=== PATIENT | male | born 1985 | race Caucasian/White ===

== ENCOUNTER 2016-12-04 08:42 | Emergency (ER) | payer MEDICARE ==
[~2016-12-04] VITALS: Ht 172.7 cm; Wt 62.7 kg
[~2016-12-04 08:42] MED LIST: BACL-19 PO; CITA20TA5 PO; CITA20TA9 PO; DIAZ5TAB4 PO; FEXO60TA9 PO; GENT3.5O3 EACHEYE; LORA10TA62 PO; MAGN400T26 PO; METH10TA4 PO; MULT-326 PO
[2016-12-04] MEDS ORDERED: DIPH,PERTUSS(ACELL),TET VAC/PF 0.5 ML IM-VACC ONE ×2 (09:29→09:30)
[2016-12-04] MEDS ORDERED: LIDOCAINE 1%, 20ML ONE (09:29)
[2016-12-04] MEDS ORDERED: LIDOCAINE 2%, 10ML INFIL ONE (09:30)
[2016-12-04 10:07] VITALS: BP 136/88
== END 2016-12-04 10:54 | disposition home or self-care (01) ==
LOC: ED 10:01
DX: S91.112A Laceration without foreign body of left great toe without damage to nail, initial encounter (principal); X58.XXXA Exposure to other specified factors, initial encounter; Y93.89 Activity, other specified; Y99.8 Other external cause status; Y92.009 Unspecified place in unspecified non-institutional (private) residence as the place of occurrence of the external cause
CPT/HCPCS: 12002; 73630; 90471; 90715; 99284; J3490

== ENCOUNTER 2016-12-11 22:54 | Emergency (ER) | payer MEDICARE ==
[~2016-12-11] VITALS: Ht 167.6 cm; Wt 60.0 kg
[2016-12-11 23:35] VITALS: BP 165/95
== END 2016-12-12 00:54 | disposition home or self-care (01) ==
LOC: ED 23:44
DX: F10.20 Alcohol dependence, uncomplicated (principal); H10.33 Unspecified acute conjunctivitis, bilateral
CPT/HCPCS: 99283

== ENCOUNTER 2016-12-13 02:04 | Emergency (ER) | payer MEDICARE ==
[~2016-12-13] VITALS: Ht 177.8 cm; Wt 65.0 kg
[2016-12-13] MEDS ORDERED: SODIUM CHLORIDE 0.9% 1,000 ML IV ONE ×2 (02:18→03:47)
[2016-12-13] MEDS ORDERED: HALOPERIDOL 5 MG/ML IM ONE (02:30)
[2016-12-13] MEDS ORDERED: SODIUM CHLORIDE 0.9% 1,000ML IVBOLUS ONE ×2 (02:30→04:00)
[2016-12-13] MEDS ORDERED: LORazepam 2 MG/ML, 1ML IVPush PRN (02:30)
[2016-12-13] MEDS ORDERED: ONDANSETRON 2MG/ML, 2ML IVPush ONE (02:30)
[2016-12-13] MEDS ORDERED: SODIUM CHLORIDE FLUSH 10ML SYR IVF ONE (02:30)
[2016-12-13] MEDS ORDERED: ONDANSETRON 2MG/ML, 2ML ONE (02:34)
[2016-12-13] MEDS ORDERED: LORazepam 2 MG/ML, 1ML ONE (02:34)
[2016-12-13 02:36] LABS: HEMOGLOBIN 15.2 g/dL (13.7-18.0)
[2016-12-13 02:49] LABS: BLOOD UREA NITROGEN 12 mg/dL (7-18)
[2016-12-13 02:53] LABS: ACETAMINOPHEN < 2 mcg/mL (10-30)
[2016-12-13] MEDS ORDERED: HALOPERIDOL 5 MG/ML ONE (03:45)
[2016-12-13 06:06] VITALS: BP 106/56
== END 2016-12-13 07:33 | disposition left against medical advice (07) ==
LOC: ED 03:04
DX: F10.220 Alcohol dependence with intoxication, uncomplicated (principal); F32.9 Major depressive disorder, single episode, unspecified
CPT/HCPCS: 36415; 80048; 80307; 80329; 82040; 85025; 93005; 96361; 96372; 96374; 96375; 99285; J1630; J2060; J2405; J7030; G0480

== ENCOUNTER 2016-12-14 19:13 | Inpatient (IN) | payer MEDICARE ==
[~2016-12-14] VITALS: Ht 172.7 cm; Wt 49.0 kg
[2016-12-14] MEDS ORDERED: SODIUM CHLORIDE 0.9% 1,000 ML IV ONE (19:33)
[2016-12-14] MEDS ORDERED: LORazepam 2 MG/ML, 1ML ONE ×2 (19:41→23:15)
[2016-12-14] MEDS ORDERED: THIAMINE 100 MG/ML, 2ML ONE (19:42)
[2016-12-14] MEDS: LORazepam 2 MG/ML, 1ML IVPush PRN ×2 (19:50→23:29)
[2016-12-14] MEDS ORDERED: THIAMINE 100 MG/ML, 2ML IM ONE (20:00)
[2016-12-14] MEDS ORDERED: SODIUM CHLORIDE FLUSH 10ML SYR IVF ONE (20:00)
[2016-12-14] MEDS ORDERED: SODIUM CHLORIDE 0.9% 1,000ML IVBOLUS ONE (20:00)
[2016-12-14 20:04] LABS: BLOOD UREA NITROGEN 5 mg/dL (7-18)
[2016-12-14 20:07] LABS: ASPARTATE AMINO TRANSFERASE 272 U/L (15-37)
[2016-12-14] MEDS ORDERED: CIPROFLOXACIN OPHTH SOLN 0.3%, 5ML EACHEYE SCH (22:30)
[2016-12-14] MEDS ORDERED: LORazepam 0.5MG TABLET PO PRN (23:00)
[2016-12-14] MEDS ORDERED: DOCUSATE 100 MG CAPSULE PO PRN (23:00)
[2016-12-14] MEDS ORDERED: LABETALOL 5MG/ML, 20ML IV PRN (23:00)
[2016-12-14] MEDS ORDERED: PROMETHAZINE 25 MG/ML, 1ML IM PRN (23:00)
[2016-12-14] MEDS ORDERED: LORazepam 2 MG/ML, 1ML IV PRN ×3 (23:00)
[2016-12-14] MEDS ORDERED: LORazepam 1MG TABLET PO PRN (23:00)
[2016-12-14] MEDS ORDERED: ENOXAPARIN 40 MG/0.4 ML SQ SCH (23:00)
[2016-12-14] MEDS ORDERED: POLYETHYLENE GLYCOL 17 GM PACKET PO PRN (23:00)
[2016-12-14] MEDS ORDERED: BISACODYL 10 MG SUPP PR PRN (23:00)
[2016-12-14] MEDS ORDERED: NS + 20MEQ KCL 1,000 ML IV ONE (23:20)
[2016-12-14] MEDS: NS + 20MEQ KCL 1,000 ML IV SCH (23:28)
[2016-12-14] MEDS: [UNRECOGNIZED DRUG - OTHER] IV SCH (23:34)
[2016-12-14] MEDS: MAGNESIUM SULFATE IV SCH (23:34)
[2016-12-14] MEDS: FOLIC ACID IV SCH (23:34)
[2016-12-14] MEDS: MVI ADULT IV SCH (23:34)
[2016-12-14] MEDS: POTASSIUM CHLORIDE IV SCH (23:34)
[2016-12-15] MEDS: BACLOFEN 10 MG TABLET PO SCH ×3 (00:19→21:07)
[2016-12-15 00:44] VITALS: BP 139/88
[2016-12-15] MEDS: LORazepam 2 MG/ML, 1ML IV PRN ×3 (01:33→17:25)
[2016-12-15] MEDS: ONDANSETRON 2MG/ML, 2ML IVP PRN (01:33)
[2016-12-15 02:00] VITALS: BP 143/82
[2016-12-15] MEDS: LORazepam 1MG TABLET PO PRN ×2 (05:09→22:39)
[2016-12-15 05:53] LABS: ASPARTATE AMINO TRANSFERASE 211 U/L (15-37); BLOOD UREA NITROGEN 4 mg/dL (7-18)
[2016-12-15 08:29] VITALS: BP 139/93
[2016-12-15] MEDS: CIPROFLOXACIN OPHTH SOLN 0.3%, 5ML EACHEYE SCH ×4 (10:33→21:08)
[2016-12-15] MEDS: NS + 20MEQ KCL 1,000 ML IV SCH ×3 (11:31→21:50)
[2016-12-15 15:16] VITALS: BP 145/97
[2016-12-15 20:00] VITALS: BP 150/102
[2016-12-15] MEDS: MAGNESIUM SULFATE IV SCH (23:25)
[2016-12-15] MEDS: MVI ADULT IV SCH (23:25)
[2016-12-15] MEDS: [UNRECOGNIZED DRUG - OTHER] IV SCH (23:25)
[2016-12-15] MEDS: POTASSIUM CHLORIDE IV SCH (23:25)
[2016-12-15] MEDS: FOLIC ACID IV SCH (23:25)
[2016-12-16 02:00] VITALS: BP 142/101
[2016-12-16 05:19] LABS: BLOOD UREA NITROGEN 5 mg/dL (7-18)
[2016-12-16 05:23] LABS: ASPARTATE AMINO TRANSFERASE 180 U/L (15-37)
[2016-12-16] MEDS: NS + 20MEQ KCL 1,000 ML IV SCH ×2 (06:02→11:10)
[2016-12-16] MEDS: CIPROFLOXACIN OPHTH SOLN 0.3%, 5ML EACHEYE SCH ×4 (06:02→20:25)
[2016-12-16 08:18] VITALS: BP 143/98
[2016-12-16] MEDS: BACLOFEN 10 MG TABLET PO SCH ×2 (09:08→20:25)
[2016-12-16] MEDS: ONDANSETRON 2MG/ML, 2ML IVP PRN (10:26)
[2016-12-16 14:02] VITALS: BP 160/92
[2016-12-16] MEDS: LORazepam 2 MG/ML, 1ML IV PRN (14:09)
[2016-12-16] MEDS: LORazepam 1MG TABLET PO PRN ×3 (16:34→23:45)
[2016-12-16 19:08] VITALS: BP 129/91
[2016-12-17] MEDS ORDERED: TRAZODONE 150MG TABLET PO SCH (00:30)
[2016-12-17 01:48] VITALS: BP 134/89
[2016-12-17] MEDS: CIPROFLOXACIN OPHTH SOLN 0.3%, 5ML EACHEYE SCH ×2 (06:56→14:58)
[2016-12-17 08:23] VITALS: BP 134/73
[2016-12-17] MEDS ORDERED: FOLIC ACID 1 MG TABLET PO SCH (09:00)
[2016-12-17] MEDS ORDERED: THIAMINE 100MG TABLET PO SCH (09:00)
[2016-12-17] MEDS ORDERED: MULTIVITAMIN 1 TABLET PO SCH (09:00)
[2016-12-17] MEDS: BACLOFEN 10 MG TABLET PO SCH (09:49)
[2016-12-17] MEDS: LORazepam 1MG TABLET PO PRN ×2 (09:50→14:57)
[2016-12-17 14:00] VITALS: BP 134/73
[2016-12-17] MEDS ORDERED: FOLI-17 PO (14:19)
[2016-12-17] MEDS ORDERED: THIA100T10 PO (14:19)
[2016-12-17] MEDS ORDERED: CIPR2.5D EACHEYE (14:19)
[2016-12-17] MEDS ORDERED: MULT1TAB60 PO (14:19)
== END 2016-12-17 18:00 | disposition home or self-care (01) | DRG 895 ==
LOC: ED 21:14 → EDIP 22:23 → 5SO 12-15 00:24 → 4NOR 12-16 17:54
PROC: HZ34ZZZ Individual Counseling for Substance Abuse Treatment, Interpersonal (ICD-10-PCS; principal; 2016-12-14)
PROC: HZ2ZZZZ Detoxification Services for Substance Abuse Treatment (ICD-10-PCS; 2016-12-14)
DX: F10.239 Alcohol dependence with withdrawal, unspecified (principal); E87.1 Hypo-osmolality and hyponatremia; K70.10 Alcoholic hepatitis without ascites; F90.9 Attention-deficit hyperactivity disorder, unspecified type; F32.9 Major depressive disorder, single episode, unspecified; H10.9 Unspecified conjunctivitis; D72.829 Elevated white blood cell count, unspecified; D69.59 Other secondary thrombocytopenia; E87.6 Hypokalemia; R74.0 Nonspecific elevation of levels of transaminase and lactic acid dehydrogenase [LDH]; F41.0 Panic disorder [episodic paroxysmal anxiety]; Z71.41 Alcohol abuse counseling and surveillance of alcoholic
CPT/HCPCS: 36415; 80048; 80053; 80307; 80329; 82040; 82140; 83735; 84100; 85025; 87324; 93005; 96361; 96372; 96374; 96375; J2405; J2550; J3411; J3475; J3480; G0480; J1630; J2060; J3420; J7030

== ENCOUNTER 2016-12-23 02:04 | Emergency (ER) | payer MEDICARE ==
[~2016-12-23] VITALS: Ht 172.7 cm; Wt 67.3 kg
[~2016-12-23 02:04] MED LIST changes: +CIPR2.5D EACHEYE; +FOLI-17 PO; +MULT1TAB60 PO; +THIA100T10 PO
[2016-12-23] MEDS ORDERED: LORazepam 1MG TABLET ONE (02:56)
[2016-12-23] MEDS ORDERED: LORazepam 1MG TABLET PO ONE (03:00)
[2016-12-23 03:01] VITALS: BP 156/107
== END 2016-12-23 03:23 | disposition home or self-care (01) ==
LOC: ED 02:45
DX: F10.229 Alcohol dependence with intoxication, unspecified (principal); F41.1 Generalized anxiety disorder; F17.210 Nicotine dependence, cigarettes, uncomplicated
CPT/HCPCS: 99282

== ENCOUNTER 2016-12-29 20:30 | Emergency (ER) | payer MEDICARE ==
[~2016-12-29] VITALS: Ht 172.7 cm; Wt 72.0 kg
[2016-12-29 20:32] VITALS: BP 134/99
[2016-12-29 21:00] LABS: BLOOD UREA NITROGEN 6 mg/dL (7-18)
== END 2016-12-29 21:24 | disposition home or self-care (01) ==
LOC: ED 21:00
DX: F10.229 Alcohol dependence with intoxication, unspecified (principal); F15.10 Other stimulant abuse, uncomplicated
CPT/HCPCS: 36415; 80048; 80307; 82040; 99284

== ENCOUNTER 2017-01-03 05:37 | Emergency (ER) | payer MEDICARE ==
[~2017-01-03] VITALS: Ht 172.7 cm; Wt 64.5 kg
[2017-01-03] MEDS ORDERED: LORazepam 1MG TABLET ONE (05:57)
[2017-01-03] MEDS ORDERED: THIAMINE 100MG TABLET ONE (05:57)
[2017-01-03] MEDS ORDERED: LORazepam 1MG TABLET PO ONE (06:00)
[2017-01-03] MEDS ORDERED: THIAMINE 100MG TABLET PO ONE (06:00)
[2017-01-03 06:17] VITALS: BP 146/98
== END 2017-01-03 08:10 | disposition home or self-care (01) ==
LOC: ED 06:14
DX: F10.20 Alcohol dependence, uncomplicated (principal); F17.210 Nicotine dependence, cigarettes, uncomplicated; F90.9 Attention-deficit hyperactivity disorder, unspecified type; F41.1 Generalized anxiety disorder; Y90.9 Presence of alcohol in blood, level not specified
CPT/HCPCS: 99283

== ENCOUNTER 2017-01-11 12:38 | Emergency (ER) | payer MEDICARE ==
[~2017-01-11] VITALS: Ht 172.7 cm; Wt 63.5 kg
[2017-01-11] MEDS ORDERED: LORazepam 1MG TABLET ONE (13:19)
[2017-01-11] MEDS ORDERED: LORazepam 1MG TABLET PO ONE (13:30)
[2017-01-11 14:13] VITALS: BP 139/98
== END 2017-01-11 16:42 | disposition left against medical advice (07) ==
LOC: ED 16:36
DX: R07.89 Other chest pain (principal); F10.120 Alcohol abuse with intoxication, uncomplicated; F17.210 Nicotine dependence, cigarettes, uncomplicated
CPT/HCPCS: 36415; 71020; 84484; 93005; 99285

== ENCOUNTER 2017-01-18 01:18 | Emergency (ER) | payer MEDICARE, MEDICAID ==
[~2017-01-18] VITALS: Ht 172.7 cm; Wt 64.7 kg
[2017-01-18] MEDS ORDERED: THIAMINE 100MG TABLET ONE (01:39)
[2017-01-18] MEDS ORDERED: ONDANSETRON 2MG/ML, 2ML ONE (01:39)
[2017-01-18] MEDS ORDERED: LORazepam 2 MG/ML, 1ML ONE (01:40)
[2017-01-18] MEDS ORDERED: LORazepam 2 MG/ML, 1ML IVPush ONE (02:00)
[2017-01-18] MEDS ORDERED: THIAMINE 100MG TABLET PO ONE (02:00)
[2017-01-18] MEDS ORDERED: SODIUM CHLORIDE 0.9% 1,000ML IVBOLUS ONE (02:00)
[2017-01-18] MEDS ORDERED: SODIUM CHLORIDE FLUSH 10ML SYR IVF ONE (02:00)
[2017-01-18] MEDS ORDERED: FOLIC ACID 1 MG TABLET PO ONE (02:00)
[2017-01-18] MEDS ORDERED: ONDANSETRON 2MG/ML, 2ML IVPush ONE (02:00)
[2017-01-18 02:21] LABS: BLOOD UREA NITROGEN 9 mg/dL (7-18)
[2017-01-18 03:17] LABS: DAU SCREEN DISCLAIMER
[2017-01-18 03:47] VITALS: BP 153/93
== END 2017-01-18 03:49 | disposition home or self-care (01) ==
LOC: ED 01:58
DX: R07.89 Other chest pain (principal); F41.1 Generalized anxiety disorder; R00.0 Tachycardia, unspecified; F32.9 Major depressive disorder, single episode, unspecified
CPT/HCPCS: 36415; 71010; 80048; 80307; 82040; 85025; 93005; 96361; 96374; 96375; 99285; J2060; J2405; J7030

== ENCOUNTER 2017-02-28 17:04 | Emergency (ER) | payer MEDICARE, MEDICAID ==
[~2017-02-28] VITALS: Ht 172.7 cm; Wt 59.0 kg
[2017-02-28 17:36] VITALS: BP 126/95
== END 2017-02-28 18:25 | disposition home or self-care (01) ==
LOC: ED 17:41
DX: F10.220 Alcohol dependence with intoxication, uncomplicated (principal)
CPT/HCPCS: 99283

== ENCOUNTER 2017-03-02 17:56 | Emergency (ER) | payer MEDICARE, MEDICAID ==
[~2017-03-02] VITALS: Ht 172.7 cm; Wt 65.4 kg
[2017-03-02] MEDS ORDERED: ERYTHROMYCIN OPHTH 0.5%, 1GM OP ONE (19:00)
[2017-03-02 19:42] VITALS: BP 139/86
== END 2017-03-02 19:45 | disposition home or self-care (01) ==
LOC: ED 19:20
DX: H10.023 Other mucopurulent conjunctivitis, bilateral (principal); F15.10 Other stimulant abuse, uncomplicated
CPT/HCPCS: 99283

== ENCOUNTER 2017-03-05 07:27 | Emergency (ER) | payer MEDICARE, MEDICAID ==
[~2017-03-05] VITALS: Ht 172.7 cm; Wt 66.0 kg
[2017-03-05] MEDS ORDERED: ONDANSETRON 2MG/ML, 2ML IVPush ONE (08:00)
[2017-03-05] MEDS ORDERED: THIAMINE 100MG TABLET PO ONE (08:00)
[2017-03-05] MEDS ORDERED: LORazepam 2 MG/ML, 1ML IVPush ONE (08:00)
[2017-03-05] MEDS ORDERED: SODIUM CHLORIDE 0.9% 1,000ML IVBOLUS ONE (08:00)
[2017-03-05] MEDS ORDERED: ONDANSETRON 2MG/ML, 2ML ONE (08:11)
[2017-03-05] MEDS ORDERED: LORazepam 2 MG/ML, 1ML ONE (08:11)
[2017-03-05] MEDS ORDERED: THIAMINE 100MG TABLET ONE (08:11)
[2017-03-05 09:05] VITALS: BP 138/90
== END 2017-03-05 09:44 | disposition home or self-care (01) ==
LOC: ED 09:07
DX: F10.232 Alcohol dependence with withdrawal with perceptual disturbance (principal); F19.10 Other psychoactive substance abuse, uncomplicated; F90.9 Attention-deficit hyperactivity disorder, unspecified type
CPT/HCPCS: 96361; 96374; 96375; 99284; J2060; J2405; J7030

== ENCOUNTER 2017-04-13 04:25 | Emergency (ER) | payer MEDICARE, MEDICAID ==
[~2017-04-13] VITALS: Ht 172.7 cm; Wt 68.2 kg
[2017-04-13 04:26] VITALS: BP 138/91
== END 2017-04-13 05:03 | disposition home or self-care (01) ==
LOC: ED 04:43
DX: H10.021 Other mucopurulent conjunctivitis, right eye (principal)
CPT/HCPCS: 99283

== ENCOUNTER 2017-04-21 21:43 | Emergency (ER) | payer MEDICARE, MEDICAID ==
[~2017-04-21] VITALS: Ht 170.2 cm; Wt 65.7 kg
[2017-04-21] MEDS ORDERED: SODIUM CHLORIDE 0.9% 1,000 ML IV ONE (21:46)
[2017-04-21] MEDS ORDERED: LORazepam 2 MG/ML, 1ML IVPush ONE (22:00)
[2017-04-21] MEDS ORDERED: SODIUM CHLORIDE 0.9% 1,000ML IVBOLUS ONE (22:00)
[2017-04-21] MEDS ORDERED: ONDANSETRON 2MG/ML, 2ML IVPush ONE (22:00)
[2017-04-21 22:17] LABS: HEMATOCRIT 42.6 % (39.2-51.8); HEMOGLOBIN 14.3 g/dL (13.7-18.0); WHITE BLOOD COUNT 6.1 x10^3/uL (3.4-10)
[2017-04-21 22:30] LABS: DAU SCREEN DISCLAIMER
[2017-04-21 22:31] LABS: ASPARTATE AMINO TRANSFERASE 27 U/L (15-37); BLOOD UREA NITROGEN 5 mg/dL (7-18)
[2017-04-21 22:32] LABS: ACETAMINOPHEN < 2 mcg/mL (10-30)
[2017-04-21] MEDS ORDERED: CHLO25CA9 PO (23:03)
[2017-04-21] MEDS ORDERED: AMPH20TA2 PO (23:03)
[2017-04-22 02:53] VITALS: BP 115/68
== END 2017-04-22 02:56 | disposition home or self-care (01) ==
LOC: ED 23:05
DX: G92 Toxic encephalopathy (principal); G31.2 Degeneration of nervous system due to alcohol; T42.4X1A Poisoning by benzodiazepines, accidental (unintentional), initial encounter; F10.20 Alcohol dependence, uncomplicated; Z72.89 Other problems related to lifestyle; Y92.9 Unspecified place or not applicable
CPT/HCPCS: 36415; 80053; 80307; 80329; 85025; 93005; 99291; G0480

== ENCOUNTER 2017-04-24 12:54 | Emergency (ER) | payer MEDICARE, MEDICAID ==
[~2017-04-24] VITALS: Ht 172.7 cm; Wt 68.0 kg
[~2017-04-24 12:54] MED LIST changes: +AMPH20TA2 PO; +CHLO25CA9 PO
[2017-04-24] MEDS ORDERED: ZIPRASIDONE 20 MG INJ IM ONE ×2 (13:00→13:10)
[2017-04-24] MEDS ORDERED: SODIUM CHLORIDE 0.9% 1,000ML IVBOLUS ONE (13:00)
[2017-04-24] MEDS ORDERED: PLEASE ENTER HEIGHT AND WEIGHT MC SCH (13:30)
[2017-04-24 16:15] VITALS: BP 110/72
== END 2017-04-24 17:39 | disposition home or self-care (01) ==
LOC: ED 14:38
DX: F10.120 Alcohol abuse with intoxication, uncomplicated (principal)
CPT/HCPCS: 96360; 96361; 96372; 99285; J3486; J7030

== ENCOUNTER 2017-09-29 20:44 | Emergency (ER) | payer MEDICARE, MEDICAID ==
[~2017-09-29] VITALS: Ht 167.6 cm; Wt 70.0 kg
[2017-09-29 21:02] VITALS: BP 127/93
== END 2017-09-29 21:54 | disposition left against medical advice (07) ==
LOC: ED 21:48
DX: F10.20 Alcohol dependence, uncomplicated (principal); F41.1 Generalized anxiety disorder; F32.9 Major depressive disorder, single episode, unspecified; G62.9 Polyneuropathy, unspecified
CPT/HCPCS: 99283

== ENCOUNTER 2017-10-03 04:22 | Emergency (ER) | payer MEDICARE, MEDICAID ==
[~2017-10-03] VITALS: Ht 172.7 cm; Wt 72.5 kg
[2017-10-03] MEDS ORDERED: LORazepam 1MG TABLET ONE (05:09)
[2017-10-03] MEDS ORDERED: LORazepam 1MG TABLET PO ONE (05:30)
[2017-10-03] MEDS ORDERED: POLYTRIM OPHTH 10ML LEFTEYE ONE (05:30)
[2017-10-03 05:51] VITALS: BP 150/96
== END 2017-10-03 06:28 | disposition home or self-care (01) ==
LOC: ED 05:12
DX: H10.022 Other mucopurulent conjunctivitis, left eye (principal); R00.0 Tachycardia, unspecified; F10.220 Alcohol dependence with intoxication, uncomplicated; F41.1 Generalized anxiety disorder; F17.210 Nicotine dependence, cigarettes, uncomplicated; F32.9 Major depressive disorder, single episode, unspecified; G62.9 Polyneuropathy, unspecified; Z59.0 Homelessness
CPT/HCPCS: 82962; 99283

== ENCOUNTER 2018-04-22 16:09 | Emergency (ER) | payer MEDICAID, MEDICARE ==
[~2018-04-22] VITALS: Ht 175.3 cm; Wt 72.0 kg
[~2018-04-22 16:09] MED LIST changes: -CITA20TA5 PO; +CITA20TA6 PO
[2018-04-22 16:14] VITALS: BP 138/95
== END 2018-04-22 17:45 | disposition home or self-care (01) ==
LOC: ED 17:05
DX: F10.120 Alcohol abuse with intoxication, uncomplicated (principal); F17.200 Nicotine dependence, unspecified, uncomplicated; Z79.899 Other long term (current) drug therapy
CPT/HCPCS: 36415; 80307; 99283

== ENCOUNTER 2018-04-25 18:43 | Emergency (ER) | payer MEDICARE ==
[~2018-04-25] VITALS: Ht 172.7 cm; Wt 73.0 kg
== END 2018-04-25 19:17 ==
LOC: ED 19:10
DX: F10.220 Alcohol dependence with intoxication, uncomplicated (principal); F90.9 Attention-deficit hyperactivity disorder, unspecified type; F17.200 Nicotine dependence, unspecified, uncomplicated
CPT/HCPCS: 99283

== ENCOUNTER 2018-06-30 12:38 | Emergency (ER) | payer MEDICARE, MEDICAID ==
[~2018-06-30] VITALS: Ht 172.7 cm; Wt 68.0 kg
[2018-06-30] MEDS ORDERED: MAALOX/HYOSCYAMINE/LIDOCAINE 45 ML BTL PO ONE (13:30)
[2018-06-30] MEDS ORDERED: MAALOX/HYOSCYAMINE/LIDOCAINE 45 ML BTL ONE (13:43)
[2018-06-30 15:21] VITALS: BP 128/64
== END 2018-06-30 15:23 | disposition home or self-care (01) ==
LOC: ED 13:00
DX: F10.220 Alcohol dependence with intoxication, uncomplicated (principal); R10.13 Epigastric pain; H10.023 Other mucopurulent conjunctivitis, bilateral; F41.1 Generalized anxiety disorder; F32.9 Major depressive disorder, single episode, unspecified
CPT/HCPCS: 99283

== ENCOUNTER 2018-06-30 19:28 | Emergency (ER) | payer MEDICARE, MEDICAID ==
[~2018-06-30] VITALS: Ht 170.2 cm; Wt 70.0 kg
[2018-06-30] MEDS ORDERED: LORazepam 1MG TABLET PO ONE (21:00)
[2018-06-30] MEDS ORDERED: ONDANSETRON ODT 4 MG PO ONE (21:00)
[2018-06-30] MEDS ORDERED: LORazepam 1MG TABLET ONE (21:17)
[2018-06-30] MEDS ORDERED: ONDANSETRON ODT 4 MG ONE (21:17)
[2018-06-30 21:24] LABS: BASOPHILS # (AUTO) 0.05 x10^3/uL (0-0.1); BASOPHILS % (AUTO) 1 % (0-1); EOSINOPHILS # (AUTO) 0.02 x10^3/uL (0-0.4); EOSINOPHILS % (AUTO) 0 % (1-7); LYMPHOCYTES # (AUTO) 2.72 x10^3/uL (1-3.4); LYMPHOCYTES % (AUTO) 33 % (22-44); MD NO; MEAN CORPUSCULAR HEMOGLOBIN 30.1 pg (27.5-34.5); MEAN CORPUSCULAR HGB CONC 33.5 g/dL (33.2-36.2); MEAN CORPUSCULAR VOLUME 90.1 fL (81-97); MEAN PLATELET VOLUME 9.5 fL (7.4-10.4); MONOCYTES # (AUTO) 0.72 x10^3/uL (0.2-0.8); MONOCYTES % (AUTO) 9 % (2-9); NEUTROPHILS # (AUTO) 4.63 x10^3/uL (1.8-6.8); NEUTROPHILS % (AUTO) 57 % (42-75); PLATELET COUNT 281 x10^3/uL (130-400); RED BLOOD COUNT 5.77 x10^6/uL (4.38-5.82); RED CELL DISTRIBUTION WIDTH 14.1 % (9.4-14.8)
[2018-06-30 21:36] LABS: ALANINE AMINOTRANSFERASE 135 U/L (12-78); ALBUMIN 3.9 g/dL (3.4-5.0); ANION GAP 8 mmol/L (5-15); CALCIUM 8.3 mg/dL (8.5-10.1); CHLORIDE 103 mmol/L (98-107); CREATININE 0.93 mg/dL (0.7-1.3)
[2018-06-30 21:40] LABS: ALKALINE PHOSPHATASE 125 U/L (45-117); BILIRUBIN,TOTAL 0.5 mg/dL (0.2-1.0); TOTAL PROTEIN 8.4 g/dL (6.4-8.2)
[2018-06-30 21:52] VITALS: BP 119/72
== END 2018-06-30 22:20 | disposition home or self-care (01) ==
LOC: ED 19:44
DX: F10.120 Alcohol abuse with intoxication, uncomplicated (principal); R10.84 Generalized abdominal pain; F90.9 Attention-deficit hyperactivity disorder, unspecified type; F17.210 Nicotine dependence, cigarettes, uncomplicated; Z72.9 Problem related to lifestyle, unspecified; F32.9 Major depressive disorder, single episode, unspecified
CPT/HCPCS: 36415; 80053; 80307; 85025; 99284; Q0162

== ENCOUNTER 2018-07-03 13:02 | Emergency (ER) | payer MEDICARE, MEDICAID ==
[2018-07-03 14:59] VITALS: BP 110/65
== END 2018-07-03 15:15 | disposition home or self-care (01) ==
LOC: ED 14:35
DX: F10.120 Alcohol abuse with intoxication, uncomplicated (principal); F41.1 Generalized anxiety disorder; F32.9 Major depressive disorder, single episode, unspecified
CPT/HCPCS: 99283

== ENCOUNTER 2018-07-03 17:48 | Emergency (ER) | payer MEDICARE, MEDICAID ==
[~2018-07-03] VITALS: Ht 172.7 cm; Wt 69.0 kg
[2018-07-03 17:57] VITALS: BP 141/92
== END 2018-07-03 21:17 | disposition home or self-care (01) ==
LOC: ED 20:37
DX: F10.120 Alcohol abuse with intoxication, uncomplicated (principal); F41.1 Generalized anxiety disorder; F32.9 Major depressive disorder, single episode, unspecified
CPT/HCPCS: 99283

== ENCOUNTER 2018-07-03 23:36 | Emergency (ER) | payer MEDICARE, MEDICAID ==
[~2018-07-03] VITALS: Ht 172.7 cm; Wt 70.0 kg
[2018-07-03 23:42] VITALS: BP 144/99
== END 2018-07-04 00:04 | disposition home or self-care (01) ==
LOC: ED 23:41
DX: F10.229 Alcohol dependence with intoxication, unspecified (principal); Z72.9 Problem related to lifestyle, unspecified; F32.9 Major depressive disorder, single episode, unspecified
CPT/HCPCS: 99283

== ENCOUNTER 2018-07-04 02:00 | Emergency (ER) | payer MEDICARE, MEDICAID ==
[~2018-07-04] VITALS: Ht 172.7 cm; Wt 68.2 kg
[2018-07-04] MEDS ORDERED: DIPH,PERTUSS(ACELL),TET VAC/PF 0.5 ML IM-VACC ONE ×2 (02:30→02:44)
[2018-07-04 06:37] VITALS: BP 130/84
== END 2018-07-04 06:39 | disposition home or self-care (01) ==
LOC: ED 02:04
DX: S00.33XA Contusion of nose, initial encounter (principal); S00.531A Contusion of lip, initial encounter; S00.83XA Contusion of other part of head, initial encounter; F90.9 Attention-deficit hyperactivity disorder, unspecified type; F32.9 Major depressive disorder, single episode, unspecified; F10.20 Alcohol dependence, uncomplicated; Z72.9 Problem related to lifestyle, unspecified; Y04.0XXA Assault by unarmed brawl or fight, initial encounter; Y93.89 Activity, other specified; Y99.8 Other external cause status; Y92.410 Unspecified street and highway as the place of occurrence of the external cause
CPT/HCPCS: 70450; 70486; 71045; 72125; 90471; 90715

== ENCOUNTER 2018-07-04 13:17 | Emergency (ER) | payer MEDICARE, MEDICAID ==
[~2018-07-04] VITALS: Ht 170.2 cm; Wt 65.0 kg
[2018-07-04 13:25] VITALS: BP 142/90
== END 2018-07-04 15:00 | disposition home or self-care (01) ==
LOC: ED 14:40
DX: F10.120 Alcohol abuse with intoxication, uncomplicated (principal); F32.9 Major depressive disorder, single episode, unspecified; F41.1 Generalized anxiety disorder; F90.9 Attention-deficit hyperactivity disorder, unspecified type
CPT/HCPCS: 99283

== ENCOUNTER 2018-07-04 16:58 | Emergency (ER) | payer MEDICARE, MEDICAID ==
[~2018-07-04] VITALS: Ht 170.2 cm; Wt 65.0 kg
[2018-07-04 17:02] VITALS: BP 138/88
== END 2018-07-04 17:14 | disposition left against medical advice (07) ==
LOC: ED 17:00
DX: F10.229 Alcohol dependence with intoxication, unspecified (principal); F17.200 Nicotine dependence, unspecified, uncomplicated
CPT/HCPCS: 99283

== ENCOUNTER 2018-07-18 13:00 | Emergency (ER) | payer MEDICARE, MEDICAID ==
[~2018-07-18] VITALS: Ht 172.7 cm; Wt 65.0 kg
[2018-07-18 13:09] VITALS: BP 114/75
== END 2018-07-18 15:43 | disposition left against medical advice (07) ==
LOC: ED 14:57
DX: F10.229 Alcohol dependence with intoxication, unspecified (principal); E11.9 Type 2 diabetes mellitus without complications; I10 Essential (primary) hypertension; F29 Unspecified psychosis not due to a substance or known physiological condition; F90.9 Attention-deficit hyperactivity disorder, unspecified type; G62.9 Polyneuropathy, unspecified; F41.0 Panic disorder [episodic paroxysmal anxiety]; F32.9 Major depressive disorder, single episode, unspecified; F15.10 Other stimulant abuse, uncomplicated; F17.200 Nicotine dependence, unspecified, uncomplicated; Z72.9 Problem related to lifestyle, unspecified; Y90.9 Presence of alcohol in blood, level not specified
CPT/HCPCS: 99283

== ENCOUNTER 2018-07-20 10:51 | Emergency (ER) | payer MEDICARE, MEDICAID ==
[~2018-07-20] VITALS: Ht 172.7 cm; Wt 70.0 kg
[2018-07-20 10:58] VITALS: BP 132/90
[2018-07-20] MEDS ORDERED: FOLIC ACID 1 MG TABLET PO SCH (11:00)
[2018-07-20] MEDS ORDERED: SODIUM CHLORIDE 0.9% 1,000ML IVBOLUS ONE (11:00)
[2018-07-20] MEDS ORDERED: ONDANSETRON 2MG/ML, 2ML IVPush ONE (11:00)
[2018-07-20] MEDS ORDERED: THIAMINE 100MG TABLET PO ONE (11:00)
== END 2018-07-20 11:19 | disposition home or self-care (01) ==
LOC: ED 10:59
DX: F10.129 Alcohol abuse with intoxication, unspecified (principal); Z76.5 Malingerer [conscious simulation]; E11.9 Type 2 diabetes mellitus without complications; I10 Essential (primary) hypertension; F90.9 Attention-deficit hyperactivity disorder, unspecified type; F32.9 Major depressive disorder, single episode, unspecified
CPT/HCPCS: 99283

== ENCOUNTER 2018-07-20 20:59 | Emergency (ER) | payer MEDICARE, MEDICAID ==
[~2018-07-20] VITALS: Ht 172.7 cm; Wt 68.3 kg
[2018-07-20 21:02] VITALS: BP 141/101
== END 2018-07-20 21:44 | disposition home or self-care (01) ==
LOC: ED 21:39
DX: F10.220 Alcohol dependence with intoxication, uncomplicated (principal); E11.9 Type 2 diabetes mellitus without complications; I10 Essential (primary) hypertension; F32.9 Major depressive disorder, single episode, unspecified; F90.9 Attention-deficit hyperactivity disorder, unspecified type; F17.200 Nicotine dependence, unspecified, uncomplicated
CPT/HCPCS: 99283

== ENCOUNTER 2018-07-20 22:06 | Emergency (ER) | payer MEDICARE, MEDICAID | END 2018-07-20 22:16 | disposition left against medical advice (07) | LOC: ED 22:10 | DX: R45.851 Suicidal ideations (principal); Z53.21 Procedure and treatment not carried out due to patient leaving prior to being seen by health care provider ==

== ENCOUNTER 2018-07-21 17:54 | Emergency (ER) | payer MEDICARE, MEDICAID ==
[2018-07-21 17:57] VITALS: BP 141/93
[2018-07-21 18:37] LABS: BASOPHILS # (AUTO) 0.06 x10^3/uL (0-0.1); BASOPHILS % (AUTO) 1 % (0-1); EOSINOPHILS # (AUTO) 0.03 x10^3/uL (0-0.4); EOSINOPHILS % (AUTO) 0 % (1-7); LYMPHOCYTES # (AUTO) 2.82 x10^3/uL (1-3.4); LYMPHOCYTES % (AUTO) 28 % (22-44); MD NO; MEAN CORPUSCULAR HEMOGLOBIN 30.9 pg (27.5-34.5); MEAN CORPUSCULAR HGB CONC 33.6 g/dL (33.2-36.2); MEAN CORPUSCULAR VOLUME 91.9 fL (81-97); MEAN PLATELET VOLUME 7.9 fL (7.4-10.4); MONOCYTES # (AUTO) 0.87 x10^3/uL (0.2-0.8); MONOCYTES % (AUTO) 9 % (2-9); NEUTROPHILS # (AUTO) 6.26 x10^3/uL (1.8-6.8); NEUTROPHILS % (AUTO) 62 % (42-75); PLATELET COUNT 555 x10^3/uL (130-400); RED BLOOD COUNT 5.42 x10^6/uL (4.38-5.82); RED CELL DISTRIBUTION WIDTH 15.2 % (9.4-14.8)
[2018-07-21 18:46] LABS: ALANINE AMINOTRANSFERASE 75 U/L (12-78); ANION GAP 11 mmol/L (5-15); CALCIUM 8.4 mg/dL (8.5-10.1); CHLORIDE 104 mmol/L (98-107); CREATININE 0.92 mg/dL (0.7-1.3)
[2018-07-21 18:49] LABS: ALKALINE PHOSPHATASE 135 U/L (45-117); BILIRUBIN,TOTAL 0.3 mg/dL (0.2-1.0)
== END 2018-07-21 19:02 | disposition home or self-care (01) ==
LOC: ED 18:02
DX: F10.220 Alcohol dependence with intoxication, uncomplicated (principal); I10 Essential (primary) hypertension; F41.1 Generalized anxiety disorder; F32.9 Major depressive disorder, single episode, unspecified; F17.200 Nicotine dependence, unspecified, uncomplicated
CPT/HCPCS: 36415; 80053; 80307; 83690; 85025; 99284

== ENCOUNTER 2018-07-23 07:25 | Emergency (ER) | payer MEDICARE, MEDICAID ==
[~2018-07-23] VITALS: Ht 172.7 cm; Wt 69.0 kg
[2018-07-23 07:27] VITALS: BP 134/86
[2018-07-23] MEDS ORDERED: ERYTHROMYCIN OPHTH 0.5%, 1GM EACHEYE ONE (08:00)
== END 2018-07-23 08:05 | disposition home or self-care (01) ==
LOC: ED 07:55
DX: H01.004 Unspecified blepharitis left upper eyelid (principal); H01.001 Unspecified blepharitis right upper eyelid; F10.10 Alcohol abuse, uncomplicated; F17.210 Nicotine dependence, cigarettes, uncomplicated; I10 Essential (primary) hypertension; Y90.0 Blood alcohol level of less than 20 mg/100 ml
CPT/HCPCS: 99283

== ENCOUNTER 2018-07-24 19:09 | Emergency (ER) | payer MEDICARE, MEDICAID ==
[~2018-07-24] VITALS: Ht 172.7 cm; Wt 70.0 kg
[2018-07-24 19:29] VITALS: BP 129/90
== END 2018-07-24 20:01 | disposition left against medical advice (07) ==
LOC: ED 19:55
DX: H10.9 Unspecified conjunctivitis (principal)
CPT/HCPCS: 99281

== ENCOUNTER 2018-07-26 11:48 | Emergency (ER) | payer MEDICARE, MEDICAID ==
[~2018-07-26] VITALS: Ht 172.7 cm; Wt 70.0 kg
[2018-07-26] MEDS ORDERED: THIAMINE 100MG TABLET PO ONE (12:00)
[2018-07-26] MEDS ORDERED: THIAMINE 100MG TABLET ONE (12:36)
[2018-07-26 15:37] VITALS: BP 119/74
== END 2018-07-26 15:51 | disposition home or self-care (01) ==
LOC: ED 11:55
DX: F10.220 Alcohol dependence with intoxication, uncomplicated (principal); I10 Essential (primary) hypertension; E11.40 Type 2 diabetes mellitus with diabetic neuropathy, unspecified
CPT/HCPCS: 99283

== ENCOUNTER 2018-07-26 21:46 | Emergency (ER) | payer MEDICARE, MEDICAID ==
[~2018-07-26] VITALS: Ht 172.7 cm; Wt 74.0 kg
[2018-07-26 21:49] VITALS: BP 132/85
== END 2018-07-27 00:39 | disposition home or self-care (01) ==
LOC: ED 07-27 00:37
DX: F10.120 Alcohol abuse with intoxication, uncomplicated (principal); Z72.9 Problem related to lifestyle, unspecified; E11.9 Type 2 diabetes mellitus without complications; I10 Essential (primary) hypertension
CPT/HCPCS: 99283

== ENCOUNTER 2018-07-29 09:49 | Emergency (ER) | payer MEDICARE, MEDICAID ==
[~2018-07-29] VITALS: Ht 172.7 cm; Wt 69.4 kg
[2018-07-29 09:51] VITALS: BP 137/97
== END 2018-07-29 11:45 | disposition home or self-care (01) ==
LOC: ED 10:03
DX: F10.14 Alcohol abuse with alcohol-induced mood disorder (principal); F10.10 Alcohol abuse, uncomplicated; E11.9 Type 2 diabetes mellitus without complications; I10 Essential (primary) hypertension; F90.9 Attention-deficit hyperactivity disorder, unspecified type; Z72.9 Problem related to lifestyle, unspecified; F31.9 Bipolar disorder, unspecified; F17.200 Nicotine dependence, unspecified, uncomplicated
CPT/HCPCS: 36415; 80307; 99283

== ENCOUNTER 2018-07-29 13:22 | Emergency (ER) | payer MEDICARE, MEDICAID | END 2018-07-29 13:52 | disposition left against medical advice (07) | LOC: ED 13:46 | DX: F10.120 Alcohol abuse with intoxication, uncomplicated (principal); Z53.21 Procedure and treatment not carried out due to patient leaving prior to being seen by health care provider ==

== ENCOUNTER 2018-08-05 13:31 | Emergency (ER) | payer MEDICARE, MEDICAID | END 2018-08-05 14:12 | disposition home or self-care (01) | LOC: ED 14:06 | DX: F10.120 Alcohol abuse with intoxication, uncomplicated (principal); E11.9 Type 2 diabetes mellitus without complications; I10 Essential (primary) hypertension; F90.9 Attention-deficit hyperactivity disorder, unspecified type; F41.1 Generalized anxiety disorder; F32.9 Major depressive disorder, single episode, unspecified; Z72.9 Problem related to lifestyle, unspecified; F17.200 Nicotine dependence, unspecified, uncomplicated | CPT/HCPCS: 99283 ==

== ENCOUNTER 2018-08-11 22:17 | Emergency (ER) | payer MEDICARE, MEDICAID ==
[~2018-08-11] VITALS: Ht 172.7 cm; Wt 63.0 kg
[2018-08-11] MEDS ORDERED: CHLORDIAZEPOXIDE 25 MG CAPSULE PO PRN ×2 (23:00→23:30)
[2018-08-11] MEDS ORDERED: BENZONATATE 100 MG CAPSULE PO ONE (23:00)
[2018-08-11] MEDS ORDERED: CHLORDIAZEPOXIDE 25 MG CAPSULE ONE ×2 (23:03→23:04)
[2018-08-11] MEDS ORDERED: BENZONATATE 100 MG CAPSULE ONE (23:03)
[2018-08-11 23:31] VITALS: BP 158/87
== END 2018-08-11 23:51 | disposition home or self-care (01) ==
LOC: ED 22:42
DX: J02.8 Acute pharyngitis due to other specified organisms (principal); B97.89 Other viral agents as the cause of diseases classified elsewhere; F10.239 Alcohol dependence with withdrawal, unspecified; R45.4 Irritability and anger; R45.1 Restlessness and agitation; I10 Essential (primary) hypertension; E11.9 Type 2 diabetes mellitus without complications; F90.9 Attention-deficit hyperactivity disorder, unspecified type; F32.9 Major depressive disorder, single episode, unspecified; F41.1 Generalized anxiety disorder
CPT/HCPCS: 93005; 99283

== ENCOUNTER 2018-08-23 12:13 | Emergency (ER) | payer MEDICARE, MEDICAID ==
[~2018-08-23] VITALS: Ht 172.7 cm; Wt 69.0 kg
[2018-08-23 13:23] LABS: BASOPHILS # (AUTO) 0.17 x10^3/uL (0-0.1); BASOPHILS % (AUTO) 2 % (0-1); EOSINOPHILS % (AUTO) 1 % (1-7); LYMPHOCYTES % (AUTO) 32 % (22-44); MD NO; MEAN CORPUSCULAR HGB CONC 33.8 g/dL (33.2-36.2); MEAN CORPUSCULAR VOLUME 91.5 fL (81-97); MEAN PLATELET VOLUME 9.2 fL (7.4-10.4); MONOCYTES # (AUTO) 1.18 x10^3/uL (0.2-0.8); MONOCYTES % (AUTO) 16 % (2-9); NEUTROPHILS # (AUTO) 3.74 x10^3/uL (1.8-6.8); NEUTROPHILS % (AUTO) 49 % (42-75); PLATELET COUNT 530 x10^3/uL (130-400); RED CELL DISTRIBUTION WIDTH 15.2 % (9.4-14.8)
[2018-08-23 13:33] VITALS: BP 133/97
[2018-08-23 13:43] LABS: ANION GAP 8 mmol/L (5-15); CALCIUM 8.5 mg/dL (8.5-10.1); CHLORIDE 103 mmol/L (98-107); CREATININE 0.84 mg/dL (0.7-1.3)
== END 2018-08-23 14:25 | disposition home or self-care (01) ==
LOC: ED 14:20
DX: T58.91XA Toxic effect of carbon monoxide from unspecified source, accidental (unintentional), initial encounter (principal); Z00.01 Encounter for general adult medical examination with abnormal findings; I10 Essential (primary) hypertension; E11.9 Type 2 diabetes mellitus without complications; F32.9 Major depressive disorder, single episode, unspecified; F17.200 Nicotine dependence, unspecified, uncomplicated
CPT/HCPCS: 36415; 80048; 82375; 85025; 93005; 99284

== ENCOUNTER 2018-09-07 11:16 | Emergency (ER) | payer MEDICARE, MEDICAID ==
[~2018-09-07] VITALS: Ht 172.7 cm; Wt 68.2 kg
--- NOTE | 2018-09-07 11:25 | NUR ---
PT ARRIVED VIA EMS. PER REPORT PT WANTS HELP WITH DETOX FROM ETOH. PT DRANK 6 HURRICAINES TODAY. "DRINKS SO MUCH, IT IS NO LONGER HELPING WITH THE PAIN" PT REPORTS 06/19 "ALL BODY PAIN" PT HAD UNKNOW ADMISSION DATE AT [facility] FOR [facility] DAYS. PT BEGAN DRINKING ETOH UPON DC. PT ALSO REPORTS "INFECTION TO LEFT EYE" INDRA EYES RED, WEEPY. LEFT WORSE THAN RIGHT. PT COOPERATIVE WITH CARE. REPORT TO TONI CHAO.
[2018-09-07] MEDS ORDERED: AMPH30TA2 PO (11:28)
[2018-09-07 12:02] VITALS: BP 135/96
--- NOTE | 2018-09-07 12:21 | NUR ---
Patient ambulated appropriately with steady gait to the restroom no assistance needed
== END 2018-09-07 12:30 | disposition home or self-care (01) ==
LOC: ED 11:20
DX: F10.120 Alcohol abuse with intoxication, uncomplicated (principal); E11.9 Type 2 diabetes mellitus without complications; I10 Essential (primary) hypertension; F90.9 Attention-deficit hyperactivity disorder, unspecified type; F41.1 Generalized anxiety disorder; F32.9 Major depressive disorder, single episode, unspecified; Z72.9 Problem related to lifestyle, unspecified
CPT/HCPCS: 99283

== ENCOUNTER 2018-09-14 22:57 | Emergency (ER) | payer MEDICARE, MEDICAID ==
[~2018-09-14] VITALS: Ht 162.6 cm; Wt 65.5 kg
[~2018-09-14 22:57] MED LIST changes: +AMPH30TA2 PO
[2018-09-14 23:02] VITALS: BP 150/90
--- NOTE | 2018-09-14 23:07 | NUR ---
pt alison jnoes, rony speak to this nurse. he stated to robert that he wants to detox, [facility] robert. pt told robert he drank 8 earthquakes and wants to stop. pt in hospital bed, given gown and side rails up x3, bed locked in low position. ermd to bs
--- NOTE | 2018-09-14 23:40 | NUR ---
PT AMBULATING OUT OF ROOM, STEADY GAIT, NO ASSISTANCE REQUIRED. PT ADVISED RN THAT HE IS READY TO LEAVE, PT DIRECTED BACK TO HIS ROOM TO WAIT FOR D/C PAPERWORK, PT AGREED. RN ADVISED ERP OF PT'S DESIRE AND READINESS TO LEAVE.
--- NOTE | 2018-09-14 23:55 | NUR ---
Patient/Caregiver given discharge instructions and they have confirmed that they understand the instructions. Patient ambulatory with steady gait.
== END 2018-09-14 23:58 | disposition home or self-care (01) ==
LOC: ED 23:40
DX: F10.220 Alcohol dependence with intoxication, uncomplicated (principal); Z72.9 Problem related to lifestyle, unspecified; E11.9 Type 2 diabetes mellitus without complications; I10 Essential (primary) hypertension; F90.9 Attention-deficit hyperactivity disorder, unspecified type; F41.1 Generalized anxiety disorder; F32.9 Major depressive disorder, single episode, unspecified; F17.200 Nicotine dependence, unspecified, uncomplicated
CPT/HCPCS: 99283

== ENCOUNTER 2018-09-17 16:58 | Emergency (ER) | payer MEDICARE, MEDICAID ==
[~2018-09-17] VITALS: Ht 172.7 cm; Wt 62.0 kg
--- NOTE | 2018-09-17 17:03 | NUR ---
PATIENT ARRIVES WITH NORMAN FROM [facility] WHERE HE CALLED EMS TO DETOX. HE STATES HE DRANK8 EARTH QUAKES. HE STATES THAT HE WANTS TO DETOX. HE IS TREMULOUS, UNKEPT, AND ANSWERS QUESTIONS ONLY OCCASIONALLY. HE IS NOT A GOOD HISTORIAN. NORMAN REPORTS HE IS VERY WELL KNOWN AND FREQUENTLY COMBATIVE. GOT HIM IN A GOWN AND ON MONITOR. SMELLS OF ALCOHOL. DENIES SUICIDE.
[2018-09-17] MEDS ORDERED: CHLORDIAZEPOXIDE 25 MG CAPSULE ONE (17:18)
[2018-09-17] MEDS ORDERED: THIAMINE 100MG TABLET PO ONE (17:30)
[2018-09-17] MEDS ORDERED: CHLORDIAZEPOXIDE 25 MG CAPSULE PO PRN (17:30)
[2018-09-17] MEDS ORDERED: THIAMINE 100MG TABLET ONE (18:19)
--- NOTE | 2018-09-17 18:21 | NUR ---
PATIENT GETS UP AND WALKS AROUND OCCASIONALLY, REMINDING HIM TO STAY IN BED. TRYING TO EDUCATE TO STAY IN BED.
--- NOTE | 2018-09-17 18:28 | NUR ---
URSULA TECH ATTEMPTED BREAHYLZER X 3 AND THE BREATHYLYZER NOT WORKING. TRIED JUST NOW X3 AND STILL NOT WORKING, WILL ASK ABOUT LAB DRAW
--- NOTE | 2018-09-17 19:03 | NUR ---
THREE PEOPLE (URSULA, MYSELF AND ANOTHER TECH) HAVE ATTEMPTED BREATHYLZER UNSUCCESSFULLY. ALERTED ANGELICA GAMINO.
[2018-09-17 19:35] VITALS: BP 142/82
--- NOTE | 2018-09-17 19:52 | NUR ---
Patient given discharge instructions and they have confirmed that they understand the instructions. Patient ambulatory with steady gait. Pt given cab voucher.
== END 2018-09-17 19:55 | disposition home or self-care (01) ==
LOC: ED 17:17
DX: F10.229 Alcohol dependence with intoxication, unspecified (principal); H10.022 Other mucopurulent conjunctivitis, left eye; I10 Essential (primary) hypertension; E11.40 Type 2 diabetes mellitus with diabetic neuropathy, unspecified
CPT/HCPCS: 99283

== ENCOUNTER 2018-09-18 16:21 | Emergency (ER) | payer MEDICARE, MEDICAID ==
--- NOTE | 2018-09-18 16:52 | NUR ---
pt LWOBS, refused VS or to provide updated info, stated "I just wanted a ride home", refused to sign AMA form- ERP aware.
--- NOTE | 2018-09-18 16:53 | NUR ---
bus pass offered, pt refused & ambulated steadily to exit.
== END 2018-09-18 16:55 | disposition left against medical advice (07) ==
LOC: ED 16:45
DX: F10.129 Alcohol abuse with intoxication, unspecified (principal); Z53.21 Procedure and treatment not carried out due to patient leaving prior to being seen by health care provider

== ENCOUNTER 2018-10-25 13:47 | Emergency (ER) | payer MEDICARE, MEDICAID ==
[~2018-10-25] VITALS: Ht 172.7 cm; Wt 68.0 kg
[2018-10-25 13:55] VITALS: BP 119/84
--- NOTE | 2018-10-25 13:57 | NUR ---
IGLESIA; REPORT TAKEN FROM EMS. PT C/O ETOH WITHDRAWAL AND GENERALIZED BODY PAIN; LAST DRINK "EARLIER TODAY". PT A&O TO PERSON, PLACE AND SITUATION, REFUSES TO ANSWER RN QUESTION OF TIME. PT IMMEDIATELY REQUESTING TO GO HOME AFTER ARRIVAL. ALL MONITORS IN PLACE, PT IS SINUS TACH RATE 130-140'S ON COURT BAILIFF. APOLINAR PEARL AT BEDSIDE TO EVALUATE.
[2018-10-25] MEDS ORDERED: LORazepam 2 MG/ML, 1ML ONE (14:24)
[2018-10-25] MEDS ORDERED: SODIUM CHLORIDE 0.9% 1,000ML IVBOLUS ONE (14:30)
[2018-10-25] MEDS ORDERED: LORazepam 2 MG/ML, 1ML IVPush PRN (14:30)
[2018-10-25] MEDS ORDERED: SODIUM CHLORIDE FLUSH 10ML SYR IVF ONE (14:30)
[2018-10-25 14:36] LABS: BASOPHILS # (AUTO) 0.05 x10^3/uL (0-0.1); BASOPHILS % (AUTO) 1 % (0-1); EOSINOPHILS % (AUTO) 0 % (1-7); LYMPHOCYTES # (AUTO) 2.71 x10^3/uL (1-3.4); LYMPHOCYTES % (AUTO) 25 % (22-44); MD NO; MEAN CORPUSCULAR HEMOGLOBIN 31.5 pg (27.5-34.5); MEAN CORPUSCULAR HGB CONC 33.8 g/dL (33.2-36.2); MEAN CORPUSCULAR VOLUME 93.1 fL (81-97); MEAN PLATELET VOLUME 8.6 fL (7.4-10.4); MONOCYTES # (AUTO) 0.34 x10^3/uL (0.2-0.8); MONOCYTES % (AUTO) 3 % (2-9); NEUTROPHILS # (AUTO) 7.78 x10^3/uL (1.8-6.8); NEUTROPHILS % (AUTO) 72 % (42-75); PLATELET COUNT 323 x10^3/uL (130-400); RED CELL DISTRIBUTION WIDTH 14.5 % (9.4-14.8)
--- NOTE | 2018-10-25 14:36 | NUR ---
PT ELOPED, WITNESSED BY STAFF WALKING OUT OF DEPT WITH STEADY GAIT. MD NOTIFIED. NO PIV PLACED PRIOR TO ELOPMENT.
[2018-10-25 14:43] LABS: ALANINE AMINOTRANSFERASE 35 U/L (12-78); ALBUMIN 3.9 g/dL (3.4-5.0); ANION GAP 13 mmol/L (5-15); CALCIUM 8.7 mg/dL (8.5-10.1); CHLORIDE 99 mmol/L (98-107); CREATININE 0.99 mg/dL (0.7-1.3)
[2018-10-25 14:46] LABS: ALKALINE PHOSPHATASE 141 U/L (45-117); BILIRUBIN,TOTAL 0.4 mg/dL (0.2-1.0); TOTAL PROTEIN 8.6 g/dL (6.4-8.2)
== END 2018-10-25 14:37 | disposition left against medical advice (07) ==
LOC: ED 14:00
DX: F10.229 Alcohol dependence with intoxication, unspecified (principal); R00.0 Tachycardia, unspecified; F41.1 Generalized anxiety disorder; F90.9 Attention-deficit hyperactivity disorder, unspecified type; E11.9 Type 2 diabetes mellitus without complications; I10 Essential (primary) hypertension; F32.9 Major depressive disorder, single episode, unspecified; Z72.9 Problem related to lifestyle, unspecified
CPT/HCPCS: 36415; 80053; 85025; 99283

== ENCOUNTER 2018-10-31 15:23 | Emergency (ER) | payer MEDICAID, MEDICARE ==
[~2018-10-31] VITALS: Ht 172.7 cm; Wt 64.0 kg
--- NOTE | 2018-10-31 15:23 | NUR ---
Pt BIB EMS for alcohol intoxication. Pt states he drank "too much" today and states that his last drink was just prior to EMS arrival. Pt with no complaint for this RN, just stating that he wants to sleep on the gurney. Pt with strong odor of ETOH.
--- NOTE | 2018-10-31 15:31 | NUR ---
Dr. Soto at bedside to evaluate pt.
--- NOTE | 2018-10-31 16:48 | NUR ---
PT AMBULATED TO BATHROOM, NO ASSISTANCE REQUIRED. PT BACK TO ROOM AND REQUESTING CAB VOUCHER TO LEAVE. MADE AWARE.
[2018-10-31 17:00] VITALS: BP 121/80
--- NOTE | 2018-10-31 17:01 | NUR ---
Patient/Caregiver given discharge instructions and they have confirmed that they understand the instructions. Patient ambulatory with steady gait. Pt given op5 voucher for safe discharge home.
== END 2018-10-31 16:56 | disposition home or self-care (01) ==
LOC: ED 16:56
DX: F10.120 Alcohol abuse with intoxication, uncomplicated (principal); I10 Essential (primary) hypertension; E11.9 Type 2 diabetes mellitus without complications; F32.9 Major depressive disorder, single episode, unspecified; F29 Unspecified psychosis not due to a substance or known physiological condition; F90.9 Attention-deficit hyperactivity disorder, unspecified type; Z72.9 Problem related to lifestyle, unspecified; Y90.9 Presence of alcohol in blood, level not specified
CPT/HCPCS: 99283

== ENCOUNTER 2018-11-01 16:53 | Emergency (ER) | payer MEDICARE ==
[~2018-11-01] VITALS: Ht 172.7 cm; Wt 69.0 kg
[2018-11-01 16:54] VITALS: BP 142/90
--- NOTE | 2018-11-01 16:59 | NUR ---
PT BIB [facility] FOR ETOH. PTS LAST DRINK WAS TODAY. HE DRINKS EARTHQUAKE. PT WAS SEEN HERE YESTERDAY FOR THE SAME. PT REPORTS PAIN ALL OVER HIS BODY. BP 115/88, HR 130S, O2 SAT 96%. PT IS CONNECTED TO THE MONITOR. CALL LIGHT WITHIN REACH.
== END 2018-11-01 17:41 ==
LOC: ED 17:26
DX: F10.120 Alcohol abuse with intoxication, uncomplicated (principal); I10 Essential (primary) hypertension; F32.9 Major depressive disorder, single episode, unspecified; F90.9 Attention-deficit hyperactivity disorder, unspecified type; Y90.9 Presence of alcohol in blood, level not specified
CPT/HCPCS: 99283

== ENCOUNTER 2018-11-07 01:50 | Emergency (ER) | payer MEDICARE ==
[~2018-11-07] VITALS: Ht 167.6 cm; Wt 75.4 kg
[2018-11-07 01:52] VITALS: BP 133/91
--- NOTE | 2018-11-07 02:06 | NUR ---
PT SITTING ON CHAIR IN ROOM, PT TERFUL, STATED " i'M NOT CRAZY", ATTEMPTED TO REASSURE PT, PT NOW SITTING CALLMLY AWAITING ERP FOR EVAL
--- NOTE | 2018-11-07 02:40 | NUR ---
PT MEDICATED PER NOV. PT UP TO RR WITH STEADY GAIT.
--- NOTE | 2018-11-07 02:53 | NUR ---
PT SITTING UP ON GURNEY, REFUSED MONITORS, CALL LIGHT WITHIN REACH.
--- NOTE | 2018-11-07 02:54 | NUR ---
PT NOT IN ROOM,NOTED PT WALKED OUT AMBULANCE BAY DOORS, ATTEMPTED TO TALK WITH PT, PT CONTINUED TO WALK OUT WITH NO RESPONSE.
== END 2018-11-07 02:58 | disposition left against medical advice (07) ==
LOC: ED 02:11
DX: F10.120 Alcohol abuse with intoxication, uncomplicated (principal); E11.9 Type 2 diabetes mellitus without complications; I10 Essential (primary) hypertension; F32.9 Major depressive disorder, single episode, unspecified; F90.9 Attention-deficit hyperactivity disorder, unspecified type; Z72.9 Problem related to lifestyle, unspecified; Z63.8 Other specified problems related to primary support group; Z75.9 Unspecified problem related to medical facilities and other health care; Z91.14 Patient's other noncompliance with medication regimen; Y90.9 Presence of alcohol in blood, level not specified
CPT/HCPCS: 99282; Q0177

== ENCOUNTER 2018-11-09 00:46 | Emergency (ER) | payer MEDICARE, OTHER ==
[~2018-11-09] VITALS: Ht 172.7 cm; Wt 68.4 kg
[2018-11-09 00:59] VITALS: BP 145/74
--- NOTE | 2018-11-09 01:20 | NUR ---
ALL VITALS EQUIPMENT FOUND IN ROOM AND ALL PT BELONGIGNS GONE. PT ELOPED. AWARE.
== END 2018-11-09 01:22 | disposition left against medical advice (07) ==
LOC: ED 01:11
DX: F10.129 Alcohol abuse with intoxication, unspecified (principal); I10 Essential (primary) hypertension; E11.9 Type 2 diabetes mellitus without complications; F32.9 Major depressive disorder, single episode, unspecified
CPT/HCPCS: 99281

== ENCOUNTER 2018-11-25 20:11 | Emergency (ER) | payer MEDICARE, MEDICAID ==
[~2018-11-25] VITALS: Ht 172.7 cm; Wt 60.0 kg
[2018-11-25 20:18] VITALS: BP 142/67
--- NOTE | 2018-11-25 23:09 | NUR ---
PT HERE FOR "DTS" PT AMBUALTED WITH STEADY GAIT IS A/OX4 AND 0 ON THE CIWA SCALE. PT REPROTS HE IS HAVING SEIZURES, PT IS RESTING IN BED WATCHING TV WHEN MAKING THE CLAIM HE IS HAVING A SEIZURE.
--- NOTE | 2018-11-25 23:10 | NUR ---
Patient/Caregiver given discharge instructions and they have confirmed that they understand the instructions. Patient ambulatory with steady gait.
== END 2018-11-25 23:20 | disposition left against medical advice (07) ==
LOC: ED 23:08
DX: F10.120 Alcohol abuse with intoxication, uncomplicated (principal); Z72.9 Problem related to lifestyle, unspecified
CPT/HCPCS: 99283

== ENCOUNTER 2019-02-13 13:27 | Emergency (ER) | payer MEDICARE, MEDICAID ==
[~2019-02-13] VITALS: Ht 172.7 cm; Wt 64.2 kg
[2019-02-13 13:32] VITALS: BP 108/76
== END 2019-02-13 14:21 | disposition home or self-care (01) ==
LOC: ED 14:14
DX: L02.416 Cutaneous abscess of left lower limb (principal); H10.023 Other mucopurulent conjunctivitis, bilateral; E11.9 Type 2 diabetes mellitus without complications; Z72.9 Problem related to lifestyle, unspecified; F32.9 Major depressive disorder, single episode, unspecified; F90.9 Attention-deficit hyperactivity disorder, unspecified type
CPT/HCPCS: 99283

== ENCOUNTER 2019-03-21 09:47 | Emergency (ER) | payer MEDICARE, MEDICAID ==
[~2019-03-21] VITALS: Ht 172.7 cm; Wt 72.6 kg
[2019-03-21 09:51] VITALS: BP 137/96
== END 2019-03-21 10:47 | disposition home or self-care (01) ==
LOC: ED 10:28
DX: R07.89 Other chest pain (principal); Z72.9 Problem related to lifestyle, unspecified; F90.9 Attention-deficit hyperactivity disorder, unspecified type; E11.9 Type 2 diabetes mellitus without complications; I10 Essential (primary) hypertension; F32.9 Major depressive disorder, single episode, unspecified
CPT/HCPCS: 99283

== ENCOUNTER 2019-04-25 01:36 | Emergency (ER) | payer MEDICARE, MEDICAID ==
[~2019-04-25] VITALS: Ht 172.7 cm; Wt 67.2 kg
[2019-04-25 03:03] VITALS: BP 118/64
== END 2019-04-25 03:05 | disposition home or self-care (01) ==
LOC: ED 02:09
DX: F10.220 Alcohol dependence with intoxication, uncomplicated (principal); Z72.9 Problem related to lifestyle, unspecified; I10 Essential (primary) hypertension; E11.9 Type 2 diabetes mellitus without complications; F90.9 Attention-deficit hyperactivity disorder, unspecified type; F32.9 Major depressive disorder, single episode, unspecified
CPT/HCPCS: 99283

== ENCOUNTER 2019-04-28 09:15 | Emergency (ER) | payer MEDICARE, MEDICAID ==
[~2019-04-28] VITALS: Ht 170.2 cm; Wt 78.0 kg
[2019-04-28 14:19] VITALS: BP 116/94
== END 2019-04-28 15:51 | disposition home or self-care (01) ==
LOC: ED 11:22
DX: F10.120 Alcohol abuse with intoxication, uncomplicated (principal); R45.1 Restlessness and agitation; I10 Essential (primary) hypertension; E11.9 Type 2 diabetes mellitus without complications; F32.9 Major depressive disorder, single episode, unspecified
CPT/HCPCS: 99283

== ENCOUNTER 2019-04-28 18:16 | Emergency (ER) | payer MEDICARE, MEDICAID ==
[~2019-04-28] VITALS: Ht 182.9 cm; Wt 65.0 kg
[2019-04-28 20:01] VITALS: BP 122/76
== END 2019-04-28 20:17 | disposition left against medical advice (07) ==
LOC: ED 20:11
DX: F15.929 Other stimulant use, unspecified with intoxication, unspecified (principal); I10 Essential (primary) hypertension; F41.9 Anxiety disorder, unspecified; F32.9 Major depressive disorder, single episode, unspecified
CPT/HCPCS: 96372; 99283; J3411

== ENCOUNTER 2019-04-28 21:55 | Emergency (ER) | payer MEDICARE, MEDICAID ==
[~2019-04-28] VITALS: Ht 172.7 cm; Wt 65.0 kg
[2019-04-29 01:11] VITALS: BP 132/76
== END 2019-04-29 01:15 | disposition left against medical advice (07) ==
LOC: ED 22:16
DX: F10.129 Alcohol abuse with intoxication, unspecified (principal); E11.9 Type 2 diabetes mellitus without complications; I10 Essential (primary) hypertension
CPT/HCPCS: 99283